=== PATIENT | male | born 1985 | race Caucasian/White ===

== ENCOUNTER 2017-06-04 20:11 | Emergency (ER) | payer BC ==
[2017-06-04 20:19] VITALS: BP 124/83; PULSE 77; RESP 16; TEMP 98.5; O2SAT 99
[2017-06-04] MEDS ORDERED: Lidocaine 1% Inj (20ml) ONE (20:27)
--- NOTE | 2017-06-04 20:34 | ED PDOC ---
Upper Extremity Pain/Injury Time Seen by Provider: 06/04/17 20:21 Chief Complaint (Nursing): Abnormal Skin Integrity Chief Complaint (Provider): Hand Injury History Per: Patient History/Exam Limitations: no limitations Onset/Duration Of Symptoms: Mins (30 minutes prior to arrival ) Current Symptoms Are (Timing): Still Present Additional Complaint(s): 32 y/o male presents to the ED complaining of a right ring finger laceration, onset 30 minutes prior to arrival. Patient reports he was cleaning a glass cup when it broke, cutting his finger. He denies any foreign body sensation and tetanus is up to date. Past Medical History Reviewed: Historical Data, Nursing Documentation, Vital Signs Vital Signs: Last Vital Signs Temp 98.5 F 06/04/17 20:16 Pulse 77 06/04/17 20:16 Resp 16 06/04/17 20:16 BP 124/83 06/04/17 20:16 Pulse Ox 99 06/04/17 20:16 - Medical History PMH: No Chronic Diseases - Surgical History Surgical History: No Surg Hx - Family History Family History: States: Unknown Family Hx - Social History Current smoker - smoking cessation education provided: No Ex-Smoker (has not smoked in the last 12 months): No Alcohol: None Drugs: Denies - Allergies Allergies/Adverse Reactions: Allergies Allergy/AdvReac Type Severity Reaction Status Date / Time No Known Allergies Allergy Verified 06/04/17 20:16 Review of Systems Musculoskeletal: Positive for: Hand Pain (right index finger) Neurological: Negative for: Numbness Physical Exam - Reviewed Nursing Documentation Reviewed: Yes Vital Signs Reviewed: Yes - Physical Exam Pulses-Radial (L): 2+ Pulses-Radial (R): 2+ Extremity: Positive for: Normal ROM (full active ROM of entire right 4th digit) , Capillary Refill (less than 2 seconds), Other (palmar surfae of the right 4th digit of the mdidedle phalanx there is a 1cm superficial laceration) - ECG O2 Sat by Pulse Oximetry: 99 (RA) Pulse Ox Interpretation: Normal Medical Decision Making Medical Decision Making: Time: --20:55 Impression: --Index Finger Laceration Plan: --Laceration repair with sutures Reassess -- Scribe Attestation: Documented by Billy Saavedra acting as a scribe for BILLY Haywood Procedures - Time-Out Type of Procedure: laceration repair Site of Procedure: R 4th digit Correct Patient: Yes Correct Procedure: Yes Correct Site Marked: Yes PA/Tech: [facility] - Laceration/Wound Repair laceration repair Wound Length (cm): 1 Wound's Depth, Shape: superficial, linear Irrigated w/ Saline (ccs): 200 Betadine Prep?: Yes Anesthesia: 1% Lidocaine Volume Anesthetic (ccs): 4 Suture Size/Type: 6:0, proline Number of Sutures: 4 Wound Complexity: Simple Sterile Dressing Applied?: Yes Disposition - Clinical Impression Clinical Impression: Finger laceration - Patient ED Disposition Is Patient to be Admitted: No - Disposition Referrals: Terrance Fried [Outside] Disposition: Routine/Home Disposition Time: 20:45 Condition: STABLE Additional Instructions: Suture removal in 7 days. Instructions: Care For Your Stitches (ED), Laceration (ED) Forms: [employer] (Italian) Print Language: UKRAINIAN
== END 2017-06-04 21:09 | disposition home or self-care (01) ==
LOC: H.ER 20:11
DX: S61.219A Laceration without foreign body of unspecified finger without damage to nail, initial encounter (principal); W25.XXXA Contact with sharp glass, initial encounter; Y92.89 Other specified places as the place of occurrence of the external cause